=== PATIENT | male | born 1965 | race Caucasian/White ===

== ENCOUNTER → 2016-03-28 | Outpatient (REF) | payer OTHER, BC ==
[~2016-03-28] MED LIST: ACET50TAOT PO; ALKATAB PO; ASPI81TAEC PO; IBUP-1114 PO; NEXI40CA PO; ZYRTTAB2 PO
[2016-03-28 13:20] LABS: BASO % 0.2 % (0.0-1.0); EOS # 0.1 K/mm3 (0.0-0.50); LARGE UNSTAINED CELL # 0.1 K/mm3 (0.0-0.4); LARGE UNSTAINED CELL % 0.8 % (0.0-4.0); LYMPH # 1.5 K/mm3 (1.5-4.5); LYMPH % 11.7 % (24.0-44.0); MEAN CORPUSCULAR HEMOGLOBIN 30.1 pg (27.0-33.0); MEAN CORPUSCULAR HGB CONC 33.9 g/dl (32.0-36.5); MEAN CORPUSCULAR VOLUME 88.8 fl (80.0-96.0); MONO # 0.5 K/mm3 (0.0-0.8); NEUTROPHILS # 9.7 K/mm3 (1.8-7.7); NEUTROPHILS % 82.2 % (36.0-66.0); PLATELET COUNT, AUTOMATED 219 k/mm3 (150-450); RED CELL DISTRIBUTION WIDTH 13.7 % (11.5-14.5); WHITE BLOOD COUNT 11.8 K/mm3 (4.0-10.0)
[2016-03-28 13:42] LABS: FOLATE 10.3 NG/ML; VITAMIN B12 LEVEL 276 PG/ML
[2016-03-28 14:25] LABS: ERYTHROCYTE SEDIMENTATION RATE 7 mm/hr (0-20)
[2016-03-28 20:57] LABS: ALBUMIN 3.6 GM/DL (3.2-5.2); ALBUMIN/GLOBULIN RATIO 1.29 (1.00-1.93); ALKALINE PHOSPHATASE 164 U/L (45-117); ALT/SGPT 11 U/L (12-78); ANION GAP 10 MEQ/L (8-16); AST/SGOT 9 U/L (15-37); BILIRUBIN,TOTAL 0.4 MG/DL (0.2-1.0); BLOOD UREA NITROGEN 20 MG/DL (7-18); CALCIUM LEVEL 9.1 MG/DL (8.5-10.1); CARBON DIOXIDE LEVEL 27 MEQ/L (21-32); CHLORIDE LEVEL 104 MEQ/L (98-107); CREATININE FOR GFR 1.02 MG/DL (0.70-1.30); GLOMERULAR FILTRATION RATE > 60.0 (>56); GLUCOSE, FASTING 80 MG/DL (70-105); POTASSIUM SERUM 4.2 MEQ/L (3.5-5.1); SODIUM LEVEL 141 MEQ/L (136-145); TOTAL PROTEIN 6.4 GM/DL (6.4-8.2)
[2016-03-30 13:45] LABS: ALBUMIN 3.75 GM/DL (3.29-5.55); ALBUMIN % 58.6 % (55.8-66.1); GAMMA GLOBULIN % 10.5 % (11.1-18.8)
[2016-03-30 14:16] LABS: VITAMIN E LEVEL 10.8 mg/L (5.3-17.5)
== END ==
LOC: M LABDRAW1 11:35
PROVIDERS: ATTEND Psychiatry & Neurology Neurology
DX: G62.9 Polyneuropathy, unspecified (principal)

== ENCOUNTER → 2016-05-06 | Outpatient (CLI) | payer BC ==
--- NOTE | 2016-05-06 16:42 | REP ---
MRI BRAIN WITHOUT CONTRAST: 05/06/2016. Clinical history: Altered mental status, cerebrovascular disease. 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 Currently has altered mental status. Please evaluate. Technique: Sagittal T1 with axial T1 and T2 FLAIR, gradient-echo, diffusion weighted images and ADC mapping sequences provided. Findings: Lateral ventricle appearance shows slightly larger right than left, but no significant midline shift. There is somewhat of a hydrocephalus ex vacuo phenomenon on that right side with fairly extensive hyperintense T2 and FLAIR signal in the white matter of the right frontal lobe and anterior parietal temporal lobes. There is hemorrhagic remnant from previous intraparenchymal bleed from the known aneurysm of the right middle cerebral artery peripheral aspect of the M1 segment. The gradient echo images show significant signal residual from prior hemorrhage within that right frontal and anterior parietal temporal region. No midline shift, mass or mass effect. There is some hyperintense white matter T2 and FLAIR signal throughout the frontal horn. There is some asymmetric enlargement of the temporal horn of the right lateral ventricle. The diffusion weighted images and the ADC mapping sequences show no pattern to suggest new or superimposed acute infarct with some susceptibility artifact from the prior surgical and vascular interventional procedures. The craniotomy site over the right anterior fqetsat-prcksvtk-nljcxqho region. The seventh/eighth cranial nerve complexes are intact. Mastoids show minor posterior lateral air cell opacification on the left side only. Brainstem and cerebellum grossly intact. Basal cisterns intact. No extra-axial fluid collection or mass. Orbits and contents unremarkable. The corpus callosum, optic chiasm and suprasellar cistern are unremarkable. There is a partially empty sella. Impression: 1. 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 There are remnants of the hemorrhagic infarct visible on the gradient echo images and no definite evidence of any new or superimposed acute infarct or extension of that previous hemorrhagic infarct. 2. Lateral ventricles slightly dilated and asymmetrically so on the right, corresponding to an ex vacuo phenomenon. No midline shift. Remainder of the brain grossly intact. Posterior fossa intact. No new areas of restricted water diffusion. No new bleeds. Signed by Bert Ledesma MD 05/06/2016 05:12 P
== END ==
LOC: M RAD 13:51
PROVIDERS: ATTEND Psychiatry & Neurology Neurology
DX: R41.82 Altered mental status, unspecified (principal); I67.89 Other cerebrovascular disease; I67.1 Cerebral aneurysm, nonruptured

== ENCOUNTER → 2016-05-24 | Outpatient (REF) | payer BC ==
[2016-05-24 16:40] LABS: FREE T4 1.11 NG/DL (0.76-1.46)
== END ==
LOC: M LABDRAW1 15:31
PROVIDERS: ATTEND Nurse Practitioner Family
DX: R94.7 Abnormal results of other endocrine function studies (principal)

== ENCOUNTER → 2017-01-02 | Outpatient (REF) | payer BC, OTHER ==
[~2017-01-02] MED LIST changes: -ZYRTTAB2 PO; +ZYRTTAB8 PO
[2017-01-02 15:42] LABS: BASO # 0.1 10^3/uL (0.0-0.2); BASO % 0.3 % (0.0-1.0); EOS # 0.2 10^3/uL (0.0-0.50); EOS % 1.1 % (0.0-3.0); IMMATURE GRANULOCYTE % 0.4 % (0-0); LYMPH # 1.9 10^3/uL (1.5-4.5); LYMPH % 11.6 % (24.0-44.0); MEAN CORPUSCULAR HEMOGLOBIN 30.9 pg (27.0-33.0); MEAN CORPUSCULAR HGB CONC 33.6 g/dl (32.0-36.5); MONO # 0.6 10^3/uL (0.0-0.8); MONO % 3.6 % (0.0-5.0); NEUTROPHILS # 13.8 10^3/uL (1.8-7.7); PLATELET COUNT, AUTOMATED 201 10^3/uL (150-450); RED CELL DISTRIBUTION WIDTH 12.8 % (11.5-14.5); WHITE BLOOD COUNT 16.6 10^3/uL (4.0-10.0)
[2017-01-02 15:58] LABS: ALBUMIN 3.8 GM/DL (3.2-5.2); ALBUMIN/GLOBULIN RATIO 1.27 (1.00-1.93); ALKALINE PHOSPHATASE 121 U/L (45-117); ALT/SGPT 17 U/L (12-78); ANION GAP 3 MEQ/L (8-16); AST/SGOT 10 U/L (7-37); BILIRUBIN,TOTAL 0.5 MG/DL (0.2-1.0); BLOOD UREA NITROGEN 19 MG/DL (7-18); CALCIUM LEVEL 9.1 MG/DL (8.5-10.1); CARBON DIOXIDE LEVEL 31 MEQ/L (21-32); CHLORIDE LEVEL 106 MEQ/L (98-107); CREATININE FOR GFR 1.08 MG/DL (0.70-1.30); GLOMERULAR FILTRATION RATE > 60.0 (>56); GLUCOSE, FASTING 110 MG/DL (70-105); POTASSIUM SERUM 3.9 MEQ/L (3.5-5.1); SODIUM LEVEL 140 MEQ/L (136-145); TOTAL PROTEIN 6.8 GM/DL (6.4-8.2)
== END ==
LOC: M LABDRAW1 14:24
PROVIDERS: ATTEND Psychiatry & Neurology Neurology
DX: T88.7XXA Unspecified adverse effect of drug or medicament, initial encounter (principal); Y92.9 Unspecified place or not applicable; Y93.9 Activity, unspecified

== ENCOUNTER 2017-01-14 21:34 | Emergency (ER) | payer BC, OTHER ==
[~2017-01-14] VITALS: Ht 177.8 cm; Wt 75.9 kg
[2017-01-14] MEDS ORDERED: SENN8.6T63 PO (21:50)
[2017-01-14] MEDS ORDERED: FLUO20CA19 PO (21:50)
[2017-01-14] MEDS ORDERED: TOPI25TA10 PO (21:50)
[2017-01-14] MEDS ORDERED: TRAZ50TA11 PO (21:50)
[2017-01-14] MEDS ORDERED: KEPP750T3 PO (21:50)
[2017-01-14] MEDS ORDERED: lidocaine patch TOP (21:50)
[2017-01-14] MEDS ORDERED: ISOVUE-370 76% 100ML VIAL (Q9967) As Ordered ONE (22:32)
--- NOTE | 2017-01-14 23:00 | REPUSA ---
Clinical history: headache. Technique: Multiple axial CT images were obtained through the head after a bolus of nonionic intraven ous contrast. Coronal and sagittal reconstructed images were also obtained. Findings: There is a aneurysm clipped in the right temporal region, causing extensive streak artifact , limiting fine detail on this region. The visualized intracerebral arterial structures including the [place], as well as the carotid and vertebrobasilar arterial systems, demonstrate normal ca liber and contour. There is no evidence of aneurysm, stenosis, or thrombosis. No abnormal enhancing m ass lesions are seen within the brain. The ventricles and sulci are symmetric bilaterally. Right temp oral encephalomalacia is noted. There is no midline shift, mass effect, or extra-axial fluid collecti on. The osseous structures are unremarkable. The visualized paranasal sinuses and mastoid air cells a re clear. Impression: 1. No focal abnormality within the [place]. No evidence of aneurysm. 2. Aneurysm clipped in the right temporal lobe is noted. Encephalomalacia the right temporal lobe is appreciated.
--- NOTE | 2017-01-14 23:10 | REPUSA ---
CT of the head Clinical history: Headache. Comparison: 01/14/2017. Technique: Multiple axial CT images were obtained through the head without administration of contrast . Findings: The ventricles and sulci are grossly unremarkable bilaterally. There is no evidence of acut e hemorrhage or infarct. Aneurysm clipped is noted in the right temporal region. Encephalomalacia in the right frontal and temporal lobes are noted. There is no midline shift, mass effect, or extra-axia l fluid collection. The osseous structures are unremarkable. The visualized paranasal sinuses and mas toid air cells are clear. Impression: No evidence of acute hemorrhage or infarct. Aneurysm repair in the right temporal region is noted with surrounding encephalomalacia the right frontal and right temporal lobes from prior infa rct.
[2017-01-15 01:09] VITALS: BP 108/59
== END 2017-01-15 01:10 | disposition home or self-care (01) ==
LOC: M ED 21:34
DX: R51 Headache (principal); Z86.79 Personal history of other diseases of the circulatory system; F17.200 Nicotine dependence, unspecified, uncomplicated; Z79.899 Other long term (current) drug therapy; Z88.5 Allergy status to narcotic agent; Z88.6 Allergy status to analgesic agent; Z88.8 Allergy status to other drugs, medicaments and biological substances
CPT/HCPCS: 70450; 70496; 99283; Q9967

== ENCOUNTER → 2017-01-30 | Outpatient (REF) | payer BC ==
[~2017-01-30] MED LIST changes: +FLUO20CA19 PO; +KEPP750T3 PO; +SENN8.6T63 PO; +TOPI25TA10 PO; +TRAZ50TA11 PO; +lidocaine patch TOP
[2017-01-30 19:42] LABS: BASO % 0.2 % (0.0-1.0); EOS # 0.2 10^3/uL (0.0-0.50); EOS % 1.4 % (0.0-3.0); IMMATURE GRANULOCYTE % 0.4 % (0-0); LYMPH % 14.4 % (24.0-44.0); MEAN CORPUSCULAR HEMOGLOBIN 31.2 pg (27.0-33.0); MEAN CORPUSCULAR HGB CONC 34.4 g/dl (32.0-36.5); MEAN CORPUSCULAR VOLUME 90.7 fl (80.0-96.0); MONO # 0.5 10^3/uL (0.0-0.8); MONO % 3.7 % (0.0-5.0); NEUTROPHILS # 11.2 10^3/uL (1.8-7.7); NEUTROPHILS % 79.9 % (36.0-66.0); PLATELET COUNT, AUTOMATED 232 10^3/uL (150-450)
[2017-01-30 20:08] LABS: FREE T4 1.08 NG/DL (0.76-1.46)
== END ==
LOC: M LABDRAW1 19:06
PROVIDERS: ATTEND Nurse Practitioner Family
DX: J01.90 Acute sinusitis, unspecified (principal); R94.6 Abnormal results of thyroid function studies

== ENCOUNTER 2017-09-13 02:54 | Emergency (ER) | payer MEDICAID ==
[2017-09-13] MEDS: KETOROLAC 30 MG/ML VIAL (J1885) IV (03:41)
[2017-09-13 04:31] LABS: BASO # 0.1 10^3/uL (0.0-0.2); BASO % 0.2 % (0.0-1.0); EOS # 0.4 10^3/uL (0.0-0.50); EOS % 1.9 % (0.0-3.0); HEMATOCRIT 45.7 % (42.0-52.0); HEMOGLOBIN 15.4 g/dl (13.5-17.5); IMMATURE GRANULOCYTE % 0.4 % (0-3.0); LYMPH # 2.1 10^3/uL (1.5-4.5); LYMPH % 10.3 % (24.0-44.0); MEAN CORPUSCULAR HEMOGLOBIN 31.4 pg (27.0-33.0); MEAN CORPUSCULAR HGB CONC 33.7 g/dl (32.0-36.5); MEAN CORPUSCULAR VOLUME 93.1 fl (80.0-96.0); MONO # 0.9 10^3/uL (0.0-0.8); MONO % 4.4 % (0.0-5.0); NEUTROPHILS # 16.6 10^3/uL (1.8-7.7); NEUTROPHILS % 82.8 % (36.0-66.0); PLATELET COUNT, AUTOMATED 200 10^3/uL (150-450); RED BLOOD COUNT 4.91 10^6/uL (4.30-6.10); RED CELL DISTRIBUTION WIDTH 13.2 % (11.5-14.5); WHITE BLOOD COUNT 20.1 10^3/uL (4.0-10.0)
[2017-09-13 05:18] LABS: AMORPHOUS SEDIMENT RFX SMALL (NEGATIVE); KETONE, URINE AUTO RFX TRACE mg/dL (NEGATIVE); LEUKOCYTE ESTERASE UR AUTO RFX NEGATIVE (NEGATIVE); MUCUS, URINE RFX SMALL (NEGATIVE); NITRITE, URINE AUTO RFX NEGATIVE (NEGATIVE); RBC, URINE AUTO RFX 125 /HPF (0-3); SPECIFIC GRAVITY UR AUTO RFX 1.021 (1.002-1.035); SQUAM EPITHELIAL CELL UR AURFX 0 /HPF (0-6); WBC, URINE AUTO RFX 3 /HPF (0-3)
[2017-09-13 05:38] LABS: ANION GAP 8 MEQ/L (8-16); BLOOD UREA NITROGEN 20 MG/DL (7-18); CALCIUM LEVEL 8.6 MG/DL (8.5-10.1); CARBON DIOXIDE LEVEL 27 MEQ/L (21-32); CHLORIDE LEVEL 109 MEQ/L (98-107); CREATININE FOR GFR 1.16 MG/DL (0.70-1.30); GLOMERULAR FILTRATION RATE > 60.0 (>56); GLUCOSE, FASTING 139 MG/DL (70-100); POTASSIUM SERUM 3.7 MEQ/L (3.5-5.1); SODIUM LEVEL 144 MEQ/L (136-145)
[2017-09-13] MEDS: OXYCODONE/APAP 5MG/325MG(BULK FOR ED) 1 TABLET PO (05:58)
== END 2017-09-13 06:03 | disposition home or self-care (01) ==
LOC: M ED 02:54
DX: N20.1 Calculus of ureter (principal); I10 Essential (primary) hypertension; F33.9 Major depressive disorder, recurrent, unspecified; F17.200 Nicotine dependence, unspecified, uncomplicated; Z98.890 Other specified postprocedural states; Z88.5 Allergy status to narcotic agent; Z88.8 Allergy status to other drugs, medicaments and biological substances; Z79.899 Other long term (current) drug therapy
CPT/HCPCS: J1885

== ENCOUNTER → 2017-11-23 | Outpatient (REF) | payer MEDICAID, MEDICARE ==
[2017-11-28 00:07] LABS: LEVETIRACETAM (KEPPRA) 28.3 ug/mL (10.0-40.0)
== END ==
LOC: M LABDRAW1 11:51
DX: G40.909 Epilepsy, unspecified, not intractable, without status epilepticus (principal)

== ENCOUNTER → 2018-02-15 | Outpatient (REF) | payer MEDICARE, MEDICAID ==
[~2018-02-15] MED LIST changes: +ACET500T15 PO; -ACET50TAOT PO; +FLOM0.4C39 PO; +PERC5TAB12 PO; +TRAZ-160 PO; -TRAZ50TA11 PO; +ZOFR4TAB14 PO
[2018-02-15 16:18] LABS: ALBUMIN 3.7 GM/DL (3.2-5.2); ALT/SGPT 15 U/L (12-78); BILIRUBIN,TOTAL 0.2 MG/DL (0.2-1.0); BLOOD UREA NITROGEN 23 MG/DL (7-18); CALCIUM LEVEL 8.9 MG/DL (8.5-10.1); CARBON DIOXIDE LEVEL 28 MEQ/L (21-32); CHLORIDE LEVEL 107 MEQ/L (98-107); FREE T3 2.6 PG/ML (2.2-4.0); GLOMERULAR FILTRATION RATE > 60.0 (>56); GLUCOSE, FASTING 98 MG/DL (70-100); POTASSIUM SERUM 3.8 MEQ/L (3.5-5.1); SODIUM LEVEL 142 MEQ/L (136-145); THYROID STIMULATING HORMONE 0.544 uIU/ML (0.358-3.740); TOTAL PROTEIN 6.7 GM/DL (6.4-8.2)
== END ==
LOC: M LABDRAW1 14:29
PROVIDERS: ATTEND Nurse Practitioner Family
DX: R94.6 Abnormal results of thyroid function studies (principal); I72.8 Aneurysm of other specified arteries

== ENCOUNTER → 2018-07-17 | Outpatient (CLI) | payer MEDICARE, MEDICAID ==
--- NOTE | 2018-07-17 10:03 | REP ---
CT LUMBAR SPINE WITHOUT CONTRAST: HISTORY: Back pain. COMPARISON: MR 01/27/2015 A diffuse disc bulge and small central disc extrusion are present at the L1-2 level. There is mild compression of the thecal sac. The L1 nerves exit the neural foramina without compression. A diffuse disc bulge is present at the L2-3 level. There is minimal compression of the thecal sac. The L2 nerves exit the neural foramina without compression. A diffuse disc bulge is present at the L3-4 level. There is mild compression of the thecal sac. There is hypertrophy of the posterior articulating facets. The L3 nerves exit the neural foramina without compression. A diffuse disc bulge is present at the L4-5 level. There is minimal compression of the thecal sac. There is hypertrophy of the posterior articulating facets. The L4 nerves exit the neural foramina without compression. A left laminectomy defect is present. A diffuse disc bulge is present at the L5-S1 level. There is minimal compression of the thecal sac. There is hypertrophy of the posterior articulating facets. There is compression of the L5 nerves in the neural foramina. A left laminectomy defect is present. The L4-5 and L5-S1 intervertebral discs are decreased in height. A vacuum phenomenon is present at the L5-S1 level. These findings are consistent with disc degeneration. There is no subluxation. IMPRESSION:1. Diffuse disc bulge and small central disc extrusion at the L1-2 level with mild thecal sac compression. 2. Diffuse disc bulges at the L2-3 and L4-5 level with minimal sac compression. A left laminectomy is present at the L4-5 level. 3. Diffuse disc bulge at the L3-4 level with mild thecal sac compression. 4. Diffuse disc bulge at the L5-S1 level with minimal thecal sac compression. There is compression of the L5 nerves in the neural foramina. A left laminectomy defect is present. The L5 nerve compression is a new finding. Electronically Signed by Artemio Cervantes MD 07/17/2018 10:22 A
== END ==
LOC: M RAD 08:22
PROVIDERS: ATTEND Physician Assistant Medical
DX: M54.5 Low back pain (principal); M47.896 Other spondylosis, lumbar region; N39.3 Stress incontinence (female) (male)

== ENCOUNTER → 2018-11-13 | Outpatient (REF) | payer MEDICARE, MEDICAID ==
[~2018-11-13] MED LIST changes: -TRAZ-160 PO; +TRAZ-252 PO
[2018-11-13 13:15] LABS: CHOLESTEROL RISK RATIO 4.95 (<5)
[2018-11-13 13:33] LABS: HEMOGLOBIN A1c 5.2 %
== END ==
LOC: M LABDRWAD 12:15
PROVIDERS: ATTEND Family Medicine
DX: Z13.1 Encounter for screening for diabetes mellitus (principal); Z13.220 Encounter for screening for lipoid disorders; K76.89 Other specified diseases of liver

== ENCOUNTER → 2019-01-04 | Outpatient (CLI) | payer MEDICARE, MEDICAID ==
[~2019-01-04] MED LIST changes: +ISOVUE-370 76% 100ML VIAL (Q9967) As Ordered ONE
--- NOTE | 2019-01-04 13:39 | REP ---
Intracranial CTA: 01/04/2019. Indication: Intracranial aneurysm. Comparison: 01/14/2017. Technique: High resolution axial CT images of the intracranial vessels were obtained following IV contrast. 75 ml of IV Isovue 370 were administered. Findings: Evaluation of the click ablated aneurysm is suboptimal secondary to extensive streak artifact. Postoperative sequelae on the right are present status post pterional craniotomy and clip ablation of an MCA bifurcation aneurysm. Surrounding encephalomalacia and gliosis of the frontotemporal region is present. There is no mass effect detected. There is ex vacuo dilatation of the right lateral ventricle. No intracranial aneurysm is detected. There is no evidence of high-grade intracranial vascular stenosis or occlusion. No intracranial AVM is detected. Impression: Suboptimal evaluation of the clip ablated right MCA aneurysm. No definite residual/recurrent aneurysm detected. No new intracranial aneurysms. No intracranial vascular high-grade stenosis or vessel occlusion. Electronically Signed by Agustin Epstein DO 01/04/2019 01:30 P
== END ==
LOC: M RAD 11:53
PROVIDERS: ATTEND Physician Assistant
DX: M54.5 Low back pain (principal); M79.605 Pain in left leg; I60.8 Other nontraumatic subarachnoid hemorrhage; I61.2 Nontraumatic intracerebral hemorrhage in hemisphere, unspecified
CPT/HCPCS: 70496; Q9967

== ENCOUNTER → 2019-03-15 | Outpatient (REF) | payer MEDICARE, MEDICAID ==
[~2019-03-15] MED LIST changes: -ISOVUE-370 76% 100ML VIAL (Q9967) As Ordered ONE
== END ==
LOC: M LABDRAW1 11:29
PROVIDERS: ATTEND Physician Assistant Medical
DX: R56.9 Unspecified convulsions (principal)
CPT/HCPCS: 36415; 80180; 85025; G0103

== ENCOUNTER → 2019-03-15 | Outpatient (REF) | payer MEDICARE, MEDICAID ==
[2019-03-15 16:00] LABS: BASO % 0.3 % (0.0-1.0); EOS # 0.2 10^3/uL (0.0-0.5); EOS % 1.4 % (0.0-3.0); HEMATOCRIT 47.8 % (42.0-52.0); HEMOGLOBIN 16.3 g/dl (13.5-17.5); LYMPH # 2.1 10^3/uL (1.5-5.0); LYMPH % 14.3 % (24.0-44.0); MEAN CORPUSCULAR HEMOGLOBIN 31.3 pg (27.0-33.0); MEAN CORPUSCULAR HGB CONC 34.1 g/dl (32.0-36.5); MEAN CORPUSCULAR VOLUME 91.9 fl (80.0-96.0); MONO # 0.7 10^3/uL (0.0-0.8); MONO % 4.5 % (0.0-5.0); NEUTROPHILS # 11.9 10^3/uL (1.5-8.5); NEUTROPHILS % 79.2 % (36.0-66.0); PLATELET COUNT, AUTOMATED 203 10^3/uL (150-450)
== END ==
LOC: M LABDRAW1 11:31
PROVIDERS: ATTEND Family Medicine
DX: D72.829 Elevated white blood cell count, unspecified (principal); R39.9 Unspecified symptoms and signs involving the genitourinary system
CPT/HCPCS: 85025; G0103

== ENCOUNTER → 2019-04-16 | Outpatient (REF) | payer MEDICARE, MEDICAID ==
[~2019-04-16] MED LIST changes: -FLUO20CA19 PO; +FLUO20CA22 PO
== END ==
LOC: M SFHCLERA 15:08
PROVIDERS: ATTEND Family Medicine
DX: D72.829 Elevated white blood cell count, unspecified (principal); M35.00 Sjogren syndrome, unspecified; F43.8 Other reactions to severe stress; F06.32 Mood disorder due to known physiological condition with major depressive-like episode; Z56.9 Unspecified problems related to employment
CPT/HCPCS: 90834; G0463

== ENCOUNTER → 2019-04-25 | Outpatient (REF) | payer MEDICARE, MEDICAID ==
[2019-04-25 15:48] LABS: BASO % 0.3 % (0.0-1.0); EOS # 0.4 10^3/uL (0.0-0.5); EOS % 3.3 % (0.0-3.0); HEMOGLOBIN 15.9 g/dl (13.5-17.5); LYMPH # 2.3 10^3/uL (1.5-5.0); LYMPH % 18.6 % (24.0-44.0); MEAN CORPUSCULAR HEMOGLOBIN 30.6 pg (27.0-33.0); MEAN CORPUSCULAR HGB CONC 33.1 g/dl (32.0-36.5); MEAN CORPUSCULAR VOLUME 92.3 fl (80.0-96.0); MONO # 0.6 10^3/uL (0.0-0.8); MONO % 5.1 % (0.0-5.0); NEUTROPHILS # 9.1 10^3/uL (1.5-8.5); NEUTROPHILS % 72.3 % (36.0-66.0); PLATELET COUNT, AUTOMATED 202 10^3/uL (150-450); WHITE BLOOD COUNT 12.6 10^3/uL (4.0-10.0)
[2019-04-25 15:49] LABS: ALBUMIN 3.6 GM/DL (3.2-5.2); ALT/SGPT 15 U/L (12-78); BILIRUBIN,TOTAL 0.4 MG/DL (0.2-1.0); BLOOD UREA NITROGEN 23 MG/DL (7-18); C REACTIVE PROTEIN QUANTITATIV 1.35 MG/DL (0.00-0.30); CALCIUM LEVEL 9.1 MG/DL (8.5-10.1); CARBON DIOXIDE LEVEL 31 MEQ/L (21-32); CHLORIDE LEVEL 107 MEQ/L (98-107); GLOMERULAR FILTRATION RATE > 60.0 (>56); GLUCOSE, FASTING 89 MG/DL (70-100); LDH LACTATE DEHYDROGENASE 148 U/L (87-241); POTASSIUM SERUM 4.1 MEQ/L (3.5-5.1); SODIUM LEVEL 140 MEQ/L (136-145); TOTAL PROTEIN 6.8 GM/DL (6.4-8.2)
[2019-04-25 16:21] LABS: ERYTHROCYTE SEDIMENTATION RATE 13 mm/hr (0-20)
[2019-04-28 00:06] LABS: ANA (HEP2) Negative (.); CARDIOLIPIN IGA ANTIBODY <9 APL U/mL (0-11); CARDIOLIPIN IGG ANTIBODY <9 GPL U/mL (0-14); CARDIOLIPIN IGM ANTIBODY <9 MPL U/mL (0-12); SSA SJOGRENS A <0.2 AI (0.0-0.9); SSB SJOGRENS B <0.2 AI (0.0-0.9)
== END ==
LOC: M SFHCLERA 13:18 → M SFHCADAM 13:20
PROVIDERS: ATTEND Family Medicine
DX: D72.829 Elevated white blood cell count, unspecified (principal); M35.00 Sjogren syndrome, unspecified

== ENCOUNTER → 2019-06-05 | Outpatient (CLI) | payer MEDICARE, MEDICAID ==
--- NOTE | 2019-06-05 17:10 | REP ---
HISTORY: History of renal calculi. COMPARISON: There are no priors for comparison. Seen superimposed over the inferior pole region of the right nephric silhouette, there is an 8 mm sized calcification. There is significant bowel content obscuring both nephric silhouettes. There are no abnormal pelvic calcifications or other calcifications identified. The intestinal gas pattern is nonspecific. The organ silhouettes in so far as delineated are within normal limits. The imaged osseous structures are within normal limits for the patient's age. IMPRESSION: Findings and limitations as described above. Electronically Signed by Zheng Mariee DO 06/06/2019 08:56 A
== END ==
LOC: M ADAMS 16:16
PROVIDERS: ATTEND Urology
DX: Z87.442 Personal history of urinary calculi (principal)

== ENCOUNTER → 2019-06-11 | Outpatient (CLI) | payer MEDICARE, MEDICAID ==
--- NOTE | 2019-06-11 09:55 | REP ---
REASON FOR EXAM: Renal calculi. COMPARISON: 09/13/2017 There are chronic lung base changes status quo. Limited evaluation of the solid intra-abdominal organs and gallbladder show no significant changes from the prior exam. There is a cyst in the medial segment of the left lobe of the liver status quo. Limited evaluation of the pancreas and adrenal glands show no gross abnormalities or significant changes from the prior exam. Limited evaluation of the kidneys show no significant changes from the prior exam. There is a tiny calcification in the inferior pole of the right kidney status quo and the calcification seen previously in the inferior pole of the left kidney, although slightly larger, causes no obstructive phenomena. Limited evaluation of the abdominal aorta and para-aortic regions show no changes from the prior exam. The bowel loops and their mesenteries are essentially unchanged. There is no free fluid or free air. There is no mass or adenopathy. CT PELVIS: There is no mass or adenopathy. There is no free fluid or free air. There is no significant change from the prior exam. Bone window technique through the examination shows no significant change. IMPRESSION: No significant change from the prior exam. Findings as described above. Electronically Signed by Zheng Mariee DO 06/11/2019 10:02 A
== END ==
LOC: M RAD 09:02
PROVIDERS: ATTEND Nurse Practitioner Family
DX: N20.0 Calculus of kidney (principal); K76.89 Other specified diseases of liver

== ENCOUNTER → 2019-12-25 | Outpatient (CLI) | payer MEDICARE, MEDICAID ==
[~2019-12-25] MED LIST changes: +ISOVUE-370 76% 100ML VIAL As Ordered ONE
--- NOTE | 2019-12-25 15:51 | REP ---
INDICATION: ANEURYSM FILE ROOM. Right middle cerebral artery aneurysm. Nontraumatic hemorrhage right cerebral hemisphere. COMPARISON: Comparison CT angiography January 04, 2019 and January 14, 2017.. TECHNIQUE: CT contrast dose: 75 ml of intravenous Isovue 370. CT technique: Helical scanning is acquired. 2 mm axial images are reformatted. Maximal intensity projection and multiplanar re-formation images are generated along with 3-D surface rendered color imaging which is viewed rotational. FINDINGS: There is considerable spray artifact from the metallic aneurysm clip at the level of the bifurcation of the right middle cerebral artery in the right temporal lobe. Patient is status post right temporal craniotomy. The bifurcation of the right middle cerebral artery is obscured by the spray artifact. The anterior and middle cerebral arteries are otherwise unremarkable. The distal vertebral arteries are intact. Basilar artery is slightly tortuous. Posterior cerebral and superior cerebellar vessels are symmetric. No other fajardo aneurysm is appreciated. There is no evidence of arteriovenous malformation. There are some stable encephalomalacia changes noted in the right temporal and frontal lobes with a enlargement of the right lateral ventricle unchanged from the prior study. No abnormality is noted in the dural sinuses. 3D surface rendered imaging shows no additional abnormality. IMPRESSION: Status post middle cerebral artery aneurysm clipping. [place] artifact from the metallic clip. Otherwise negative. No other fajardo aneurysm seen. <Electronically signed by Isidro Jefferson > 12/25/19 [id number]
== END ==
LOC: M RAD 12:41
PROVIDERS: ATTEND Physician Assistant
DX: I72.0 Aneurysm of carotid artery (principal)
CPT/HCPCS: 70496; Q9967

== ENCOUNTER → 2020-01-01 | Outpatient (REF) | payer MEDICARE, MEDICAID ==
[~2020-01-01] MED LIST changes: -ISOVUE-370 76% 100ML VIAL As Ordered ONE
[2020-01-01 12:50] LABS: BASO % 0.2 % (0.0-1.0); EOS # 0.4 10^3/uL (0.0-0.5); HEMATOCRIT 49.5 % (42.0-52.0); HEMOGLOBIN 16.4 g/dl (13.5-17.5); LYMPH # 2.3 10^3/uL (1.5-5.0); LYMPH % 18.2 % (24.0-44.0); MEAN CORPUSCULAR HGB CONC 33.1 g/dl (32.0-36.5); MEAN CORPUSCULAR VOLUME 93.6 fl (80.0-96.0); MONO # 0.7 10^3/uL (0.0-0.8); MONO % 5.3 % (0.0-5.0); NEUTROPHILS # 9.1 10^3/uL (1.5-8.5); PLATELET COUNT, AUTOMATED 206 10^3/uL (150-450); RED BLOOD COUNT 5.29 10^6/uL (4.30-6.10); WHITE BLOOD COUNT 12.5 10^3/uL (4.0-10.0)
[2020-01-01 13:27] LABS: ALBUMIN 3.9 GM/DL (3.2-5.2); ALT/SGPT 13 U/L (12-78); BILIRUBIN,TOTAL 0.3 MG/DL (0.2-1.0); BLOOD UREA NITROGEN 22 MG/DL (7-18); CALCIUM LEVEL 9.6 MG/DL (8.5-10.1); CARBON DIOXIDE LEVEL 26 MEQ/L (21-32); CHLORIDE LEVEL 107 MEQ/L (98-107); CHOLESTEROL LEVEL 161 MG/DL (<200); CHOLESTEROL RISK RATIO 3.577 (<5); CREATININE FOR GFR 1.17 MG/DL (0.70-1.30); GLOMERULAR FILTRATION RATE > 60.0 (>56); GLUCOSE, FASTING 104 MG/DL (70-100); HDL CHOLESTEROL 45 MG/DL (>40); LDL CHOLESTEROL 96 MG/DL (<100); NON-HDL-C 116 MG/DL; POTASSIUM SERUM 4.4 MEQ/L (3.5-5.1); SODIUM LEVEL 139 MEQ/L (136-145); THYROID STIMULATING HORMONE 0.644 uIU/ML (0.358-3.740); TOTAL PROTEIN 6.8 GM/DL (6.4-8.2); TRIGLYCERIDES LEVEL 98 MG/DL (<150)
== END ==
LOC: M SFHCLERA 10:46 → M SFHCADAM 11:02
PROVIDERS: ATTEND Family Medicine
DX: Z87.898 Personal history of other specified conditions (principal); Z13.220 Encounter for screening for lipoid disorders

== ENCOUNTER → 2020-01-01 | Outpatient (REF) | payer MEDICARE, MEDICAID ==
[2020-01-04 07:07] LABS: LEVETIRACETAM (KEPPRA) 31.1 ug/mL (10.0-40.0); TOPIRAMATE LEVEL 3.4 ug/mL (2.0-25.0)
== END ==
LOC: M LABDRWAD 12:36
PROVIDERS: ATTEND Physician Assistant Medical
DX: R56.9 Unspecified convulsions (principal); Z51.81 Encounter for therapeutic drug level monitoring

== ENCOUNTER → 2020-01-01 | Outpatient (CLI) | payer MEDICARE, MEDICAID ==
--- NOTE | 2020-01-01 10:47 | REP ---
INDICATION: LIVER LESION. COMPARISON: CT abdomen 06/11/2019 TECHNIQUE: Standard right upper quadrant ultrasound performed FINDINGS: Sonographic evaluation of the liver shows generally homogeneous echotexture without enlargement the midclavicular line with vertical diameter 14.6 cm is a normal size. Right lobe shows a 2 mm echogenic focus consistent with a small calcifications seen on CT 06/11/2019. There is a 5.3 x 4.4 x 3.3 cm cystic lesion just medial to the ede hepatis. Has some complex features and septations but with very good through transmission. Gallbladder is without stone, sludge, wall thickening or pericholecystic fluid. No sonographic Scruggs's sign identified. The common duct is 4.4 mm without a stone. Pancreas is completely obscured due to gas shadowing. Right kidney is 11.1 x 4.6 x 5.8 cm and has some sinus lipomatosis. No discrete abnormality kidneys 1. IMPRESSION: 1. Complex cyst with loculations and septa inside within the right hepatic lobe near the ede hepatis. It is 5.3 x 4.4 x 3.3 cm. Two years ago it was 4.3 cm in greatest diameter. There are no other significant findings in the right upper quadrant. <Electronically signed by Bert Ledesma > 01/01/20 [id number]
== END ==
LOC: M RAD 09:22
PROVIDERS: ATTEND Family Medicine
DX: K76.9 Liver disease, unspecified (principal); R56.9 Unspecified convulsions; Z51.81 Encounter for therapeutic drug level monitoring; Z87.898 Personal history of other specified conditions; Z13.220 Encounter for screening for lipoid disorders; Z79.899 Other long term (current) drug therapy

== ENCOUNTER → 2020-03-09 | Outpatient (REF) | payer MEDICARE, MEDICAID | LOC: M SFHCADAM 16:02 | PROVIDERS: ATTEND Nurse Practitioner Women's Health | DX: Z12.5 Encounter for screening for malignant neoplasm of prostate (principal) ==

== ENCOUNTER → 2020-04-07 | Outpatient (CLI) | payer MEDICARE, MEDICAID ==
--- NOTE | 2020-04-07 19:45 | REP ---
INDICATION: PARACARDIAL CYST. COMPARISON: Comparison is made with imaging from CT abdomen pelvis dated [address] abdomen pelvis September 13, 2017.. TECHNIQUE: Helical scanning is acquired. 3 mm axial images are generated. Coronal and sagittal MPR and coronal MIP images are generated. 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 Axial CT images confirm the presence of a 3.5 cm homogeneous water density cyst in the epicardial fat to the right of midline just above the diaphragm anteriorly. This is essentially unchanged from both prior studies. It is previous greatest dimension was 3.8 cm. No soft tissue component is seen. There are granulomatous reynold calcifications in the subcarinal and right hilar region consistent with granulomatous changes. No mediastinal mass or adenopathy is seen. There is minimal vascular calcification. There are scattered interstitial fibrosis changes in the lung bases bilaterally. Moderate emphysematous changes are noted in the upper lobes bilaterally. No acute infiltrate is seen. No pleural effusion or pericardial effusion is seen. No pulmonary mass or significant pulmonary nodule is appreciated. No endobronchial disease is seen. Previously noted left lobe hepatic cyst is again seen measuring 4.7 cm in greatest diameter. In 2018, this cyst measured 4.1 cm. Normal adrenal glands are seen. The visualized upper abdominal structures are otherwise unremarkable. IMPRESSION: Stable simple cystic lesion in the epicardial fat consistent with pericardial cyst. Interstitial fibrosis in the lower lobes and emphysematous changes in the upper lobes of the lungs consistent with COPD. Old granulomatous calcifications. Benign simple cyst in the liver. <Electronically signed by Isidro Jefferson > 04/07/201940
== END ==
LOC: M RAD 16:15
PROVIDERS: ATTEND Family Medicine
DX: Q24.8 Other specified congenital malformations of heart (principal); J84.10 Pulmonary fibrosis, unspecified; J43.9 Emphysema, unspecified; K76.89 Other specified diseases of liver

== ENCOUNTER 2020-05-20 14:09 | Emergency (ER) | payer MEDICARE, MEDICAID ==
[~2020-05-20] VITALS: Ht 177.8 cm; Wt 78.6 kg
[~2020-05-20 14:09] MED LIST changes: +ASPI-569 PO; -ASPI81TAEC PO
[2020-05-20] MEDS ORDERED: ACET-683 PO (14:26)
[2020-05-20] MEDS ORDERED: VITMTA PO (14:26)
[2020-05-20] MEDS ORDERED: OXYB15TA14 (14:26)
[2020-05-20] MEDS ORDERED: PRAV10TA3 (14:26)
[2020-05-20] MEDS ORDERED: ONDANSETRON 4MG/2ML VIAL IV ONE (16:15)
[2020-05-20] MEDS ORDERED: PANTOPRAZOLE 40MG VIAL (C9113 PER 1) IV ONE (16:15)
[2020-05-20] MEDS ORDERED: KETOROLAC 30 MG/ML 1ML VIAL IV ONE (16:15)
[2020-05-20] MEDS ORDERED: NS 1,000 ML IV ONE (16:15)
--- NOTE | 2020-05-20 17:16 | REP ---
INDICATION: llq pain calc vs divertic. COMPARISON: 06/11/2019 TECHNIQUE: Noncontrast imaging through the abdomen and pelvis with coronal and sagittal reconstructions. FINDINGS: CT abdomen: The lung base shows some minor dependent atelectasis deep sulcus and peripheral subpleural fibrotic changes bilaterally. No effusion or acute infiltrate. No pulmonary nodules. Heart is not grossly enlarged no pericardial thickening or effusion and no hiatal hernia. Liver, spleen and gallbladder are without acute finding Paddock cyst adjacent to the gallbladder fossa medial to it and minimally changed from the previous study now 4.7 cm, previously 4.3 cm. No calcified gallstones, biliary dilatation or ascites in the upper abdomen. There is 1 calcification in the spleen from old granulomatous disease. Adrenal glands are normal. Pancreas without any acute finding. Small bowel loops without abnormal dilatation or perienteric inflammatory changes. The aorta has calcifications without aneurysm no periaortic, mesenteric or retroperitoneal pathologic sized lymphadenopathy stool and liquid in the colon without signs of colitis or diverticulitis. There are few pericecal small nodes but no of phlegm a suresh changes or definite visualization of the appendix. Lung window review of all CT slices abdomen and pelvis shows no evidence of perforation or free air. Kidneys show scarring anteriorly lower pole on the right with a calcification in subcapsular lower pole on the right,unchanged. This is about 6 mm. No hydronephrosis, other right renal stones or dilatation of the ureter. No right ureteral stone. The left kidney shows 2 adjacent stones in the lower pole collecting system which combined have a diameter of approximately 8 x 7 mm. No other left renal stones. Left ureter follows normal course to the bladder and at the UVJ there is a 3.8 mm stone which contributes to minimal hydroureter and hydronephrosis. Bone windows show degenerative disc changes at L4-5, L5-S1 and no compression deformity or destructive lesion lumbar lower and thoracic spine. Visualized ribs are intact. CT pelvis: The bony pelvis shows sacrum, SI joints, iliac bones, acetabula, ischia and hips without fracture or acute finding. There is sacralization of transverse processes of L5 as anatomic normal variation and these are fused with the S1 sacral segment. There is no pelvic mass. Bladder is well filled. No stone within the bladder. There is a 3.8 mm stone at the left UVJ as described above. No right ureteral dilatation or stone. No pelvic lymphadenopathy or free fluid. Distal left colon, sigmoid and rectum unremarkable. Small bowel loops in the pelvis unremarkable. No ventral or inguinal hernia nor pathologic sized inguinal adenopathy. IMPRESSION: 1. There is a 3.8 mm stone at the left UVJ contributing to minimal left ureteral and collecting system dilatation. The lower pole of the left kidney has 2 adjacent stones 8 x 7 mm combined measurement which are not contributing to this obstruction which is mild. 2. A non occluding 6.5 mm subcapsular stone lower pole right kidney anterior adjacent to a cortical scar in that same kidney stable no right hydronephrosis hydroureter or stones in the collecting system/ureter. 3. Atherosclerotic calcifications aorta without aneurysm. One calcification in the spleen from old granulomatous disease. No other significant or acute finding. <Electronically signed by Bert Ledesma > 05/20/20 [id number]
[2020-05-20 17:22] LABS: BASO % 0.1 % (0.0-1.0); EOS # 0.2 10^3/uL (0.0-0.5); HEMATOCRIT 47.3 % (42.0-52.0); HEMOGLOBIN 15.8 g/dl (13.5-17.5); LYMPH # 1.8 10^3/uL (1.5-5.0); LYMPH % 11.9 % (24.0-44.0); MEAN CORPUSCULAR HEMOGLOBIN 31.2 pg (27.0-33.0); MEAN CORPUSCULAR HGB CONC 33.4 g/dl (32.0-36.5); MEAN CORPUSCULAR VOLUME 93.3 fl (80.0-96.0); MONO % 6.5 % (2.0-8.0); NEUTROPHILS # 12.4 10^3/uL (1.5-8.5); NEUTROPHILS % 80.2 % (36.0-66.0); PLATELET COUNT, AUTOMATED 196 10^3/uL (150-450); RED BLOOD COUNT 5.07 10^6/uL (4.30-6.10); WHITE BLOOD COUNT 15.5 10^3/uL (4.0-10.0)
[2020-05-20 17:27] LABS: INR 0.97; PROTHROMBIN TIME 13.1 SECONDS (12.5-14.3)
[2020-05-20 17:50] LABS: ALBUMIN 3.6 GM/DL (3.2-5.2); BILIRUBIN,DIRECT 0.2 MG/DL (0.0-0.2); BILIRUBIN,TOTAL 0.5 MG/DL (0.2-1.0); CALCIUM LEVEL 9.7 MG/DL (8.5-10.1); CREATININE FOR GFR 1.53 MG/DL (0.70-1.30); GLOMERULAR FILTRATION RATE 50.6 (>56); POTASSIUM SERUM 3.9 MEQ/L (3.5-5.1); TOTAL PROTEIN 6.8 GM/DL (6.4-8.2)
[2020-05-20] MEDS ORDERED: CIPROFLOXACIN 400 MG in IV 1 EA IV ONE (17:55)
[2020-05-20] MEDS ORDERED: TAMSULOSIN 0.4 MG CAP PO ONE (17:55)
[2020-05-20] MEDS ORDERED: ZOFR4TAB16 PO (19:07)
[2020-05-20] MEDS ORDERED: KETO10TAB PO (19:07)
[2020-05-20] MEDS ORDERED: FLOM0.4C39 PO (19:07)
[2020-05-20] MEDS ORDERED: CIPR-249 PO (19:07)
[2020-05-20 19:52] VITALS: BP 118/68
== END 2020-05-20 19:56 | disposition home or self-care (01) ==
LOC: M ED 14:09
DX: N39.0 Urinary tract infection, site not specified (principal); N13.2 Hydronephrosis with renal and ureteral calculous obstruction; R11.0 Nausea; R19.7 Diarrhea, unspecified; I67.1 Cerebral aneurysm, nonruptured; I70.90 Unspecified atherosclerosis; D73.89 Other diseases of spleen; K76.89 Other specified diseases of liver; I11.9 Hypertensive heart disease without heart failure; E78.5 Hyperlipidemia, unspecified; J45.909 Unspecified asthma, uncomplicated; F17.200 Nicotine dependence, unspecified, uncomplicated; Z88.5 Allergy status to narcotic agent; Z88.6 Allergy status to analgesic agent; Z88.8 Allergy status to other drugs, medicaments and biological substances; Z79.899 Other long term (current) drug therapy
CPT/HCPCS: 74176; 80048; 80076; 81001; 83690; 85025; 85610; 87086; 96361; 96365; 96375; 99284; C9113; J0744; J1885; J2405

== ENCOUNTER → 2020-07-02 | Outpatient (CLI) | payer MEDICARE, MEDICAID ==
[~2020-07-02] MED LIST changes: +ACET-683 PO; +CIPR-249 PO; +KETO10TAB PO; +OXYB15TA14 PO; +PRAV10TA3 PO; +SENN-80 PO; +VITMTA PO; +ZOFR4TAB16 PO
== END ==
LOC: M LAB 15:50
PROVIDERS: ATTEND Physician Assistant Medical
DX: G40.89 Other seizures (principal)

== ENCOUNTER → 2020-07-02 | Outpatient (CLI) | payer MEDICARE, MEDICAID ==
--- NOTE | 2020-07-03 20:35 | ECGEPIP ---
[facility] Test Date: 2020-07-02 Pat Name: VINCE GUZMAN Department: Room: - Gender: Male Firearms Specialist: eloy : 1965 Requested By: SUSHIL Anthony Order Number: [id number] Reading MD: Mike Ballesteros Measurements Intervals [place] Rate: 65 P: 55 TX: 180 QRS: 55 QRSD: 88 T: 71 QT: 412 QTc: 428 Interpretive Statements Normal sinus rhythm No RV conduction delay compared with 04/10/2015. Electronically Signed on 07-03-2020 20:34:57 EDT by Mike Ballesteros
== END ==
LOC: M EKG 15:52
PROVIDERS: ATTEND Anesthesiology
DX: Z01.818 Encounter for other preprocedural examination (principal)

== ENCOUNTER → 2020-07-02 | Outpatient (CLI) | payer MEDICARE, MEDICAID ==
[2020-07-02 17:16] LABS: BLOOD UREA NITROGEN 21 MG/DL (7-18); CALCIUM LEVEL 9.3 MG/DL (8.5-10.1); CARBON DIOXIDE LEVEL 28 MEQ/L (21-32); CHLORIDE LEVEL 105 MEQ/L (98-107); CREATININE FOR GFR 1.14 MG/DL (0.70-1.30); GLOMERULAR FILTRATION RATE > 60.0 (>56); GLUCOSE, FASTING 85 MG/DL (70-100); POTASSIUM SERUM 3.9 MEQ/L (3.5-5.1); SODIUM LEVEL 138 MEQ/L (136-145)
[2020-07-02 17:24] LABS: HEMATOCRIT 45.4 % (42.0-52.0); MEAN CORPUSCULAR HEMOGLOBIN 30.5 pg (27.0-33.0); MEAN CORPUSCULAR VOLUME 92.3 fl (80.0-96.0); PLATELET COUNT, AUTOMATED 215 10^3/uL (150-450); RED BLOOD COUNT 4.92 10^6/uL (4.30-6.10); WHITE BLOOD COUNT 12.1 10^3/uL (4.0-10.0)
[2020-07-02 17:27] LABS: INR 1.13; PROTHROMBIN TIME 14.8 SECONDS (12.5-14.3)
[2020-07-02 17:28] LABS: PARTIAL THROMBOPLASTIN TIME 35.7 SECONDS (24.2-38.5)
[2020-07-02 17:38] LABS: APPEARANCE, URINE HAZY (CLEAR); BACTERIA, URINE AUTO NEGATIVE (NEGATIVE); BILIRUBIN, URINE AUTO NEGATIVE (NEGATIVE); BLOOD, URINE BLOOD NEGATIVE (NEGATIVE); CALCIUM OXALATE CRYSTALS SMALL; COLOR, URINE YELLOW (YELLOW); GLUCOSE, URINE (UA) AUTO NEGATIVE (NEGATIVE); KETONE, URINE AUTO NEGATIVE (NEGATIVE); LEUKOCYTE ESTERASE, URINE AUTO NEGATIVE (NEGATIVE); MUCUS, URINE SMALL (NEGATIVE); NITRITE, URINE AUTO NEGATIVE (NEGATIVE); PROTEIN, URINE AUTO NEGATIVE (NEGATIVE); RBC, URINE AUTO 4 /HPF (0-3); SQUAMOUS EPITHELIAL CELL UR AU 0 /HPF (0-6); WBC, URINE AUTO 6 /HPF (0-3)
== END ==
LOC: M LAB 15:47
PROVIDERS: ATTEND Nurse Practitioner Women's Health
DX: Z01.818 Encounter for other preprocedural examination (principal); N20.0 Calculus of kidney; R79.1 Abnormal coagulation profile

== ENCOUNTER → 2020-07-04 | Outpatient (CLI) | payer MEDICARE, MEDICAID | LOC: M LABSMTC 08:02 | PROVIDERS: ATTEND Anesthesiology | DX: Z20.828 Contact with and (suspected) exposure to other viral communicable diseases (principal); Z11.59 Encounter for screening for other viral diseases ==

== ENCOUNTER 2020-07-09 06:24 | Day surgery (SDC) | payer MEDICARE, MEDICAID ==
[~2020-07-09] VITALS: Ht 177.8 cm; Wt 77.1 kg
[~2020-07-09 06:24] MED LIST changes: +LR 1,000 ML IV ONE; +ceFAZolin SOD 2 GM in IV 1 EA IV ONE
[2020-07-09] MEDS ORDERED: OXYC1TAB23 PO (07:49)
[2020-07-09] MEDS ORDERED: PHENYLephrine 500MCG 5ML (100MCG/ML) SYRINGE As Ordered ONE (07:51)
[2020-07-09] MEDS ORDERED: METOCLOPRAMIDE INJ 10MG/2ML VIAL (J2765 PER 1) As Ordered ONE (07:51)
[2020-07-09] MEDS ORDERED: REMIFENTANIL 1MG 3ML VIAL As Ordered ONE (07:51)
[2020-07-09] MEDS ORDERED: dexameTHASONE 4 MG/ML 1ML VIAL (J1100 PER 1MG) As Ordered ONE (07:51)
[2020-07-09] MEDS ORDERED: propofoL 200 MG/20 ML VIAL As Ordered ONE (07:51)
[2020-07-09] MEDS ORDERED: fentaNYL 100 MCG/2 ML INJECTION (J3010) As Ordered ONE (07:51)
[2020-07-09] MEDS ORDERED: MIDAZOLAM INJ 2MG/2ML VIAL (J2250 PER 1MG) As Ordered ONE (07:51)
[2020-07-09] MEDS ORDERED: ONDANSETRON 4MG/2ML VIAL As Ordered ONE (07:51)
--- NOTE | 2020-07-09 08:26 | RO ---
OPERATIVE NOTE DATE OF OPERATION: 07/09/2020 PREOPERATIVE DIAGNOSIS: Left kidney stones. POSTOPERATIVE DIAGNOSIS: Left kidney stones. PROCEDURE: Left extracorporeal shock wave lithotripsy. SURGEON: Jimbo Watters MD HIGH DENSITY PRESS OPERATOR: None. ANESTHESIA: MAC. OPERATIVE INDICATIONS: This is a 54-year-old male who was found on recent CT scan to have two lower pole left-sided kidney stones measuring up to about 7 mm in size. He was brought to the operating room today for treatment. DESCRIPTION OF PROCEDURE: The patient was brought to the operating room and MAC anesthesia was administered. Prophylactic antibiotics were infused. He was placed in the supine position in preparation for left-sided extracorporeal shock wave lithotripsy. Fluoroscopy was utilized to monitor stone position and fragmentation throughout the procedure. Shock waves were then delivered to the left-sided kidney stones ungated. There were no arrhythmias. The stones did appear to fragment well. After 2500 shocks the procedure was concluded. The patient was awakened from anesthesia and transported to the recovery room in stable condition. ESTIMATED BLOOD LOSS: 0 mL. COMPLICATIONS: None. SPECIMEN: None. PLAN: The patient will follow up in urology clinic in a few weeks with imaging prior to assess for residual stone burden.
[2020-07-09 08:30] VITALS: BP 107/68
[2020-07-09] MEDS ORDERED: LR 1,000 ML IV SCH (08:35)
[2020-07-09] MEDS ORDERED: PERCOCET 5MG/325MG TAB PO PRN (08:35)
[2020-07-09] MEDS ORDERED: ONDANSETRON 4MG/2ML VIAL IV PRN (08:35)
--- NOTE | 2020-07-09 09:39 | REP ---
INDICATION: KIDNEY STONE PREOP PROCEDURE. COMPARISON: None. FINDINGS: KUB shows the intestinal gas pattern to be nonspecific. The organ silhouettes insofar as delineated are unremarkable. There is no evidence of free intraperitoneal air. IMPRESSION: Nonspecific. <Electronically signed by Zheng Mariee > 07/09/20 [id number]
== END 2020-07-09 09:05 | disposition home or self-care (01) ==
LOC: M RAD 06:24 → M SDC 06:24 → M RAD 09:05
PROVIDERS: ATTEND Urology
DX: N20.0 Calculus of kidney (principal); J44.9 Chronic obstructive pulmonary disease, unspecified; F41.9 Anxiety disorder, unspecified; F32.9 Major depressive disorder, single episode, unspecified; F17.218 Nicotine dependence, cigarettes, with other nicotine-induced disorders; E78.5 Hyperlipidemia, unspecified; M35.00 Sjogren syndrome, unspecified; Z79.899 Other long term (current) drug therapy; Z88.8 Allergy status to other drugs, medicaments and biological substances; Z88.5 Allergy status to narcotic agent
CPT/HCPCS: 50590; 74018; J0690; J1100; J2250; J2370; J2405; J2765; J3010

== ENCOUNTER → 2020-08-05 | Outpatient (CLI) | payer MEDICARE, MEDICAID ==
[~2020-08-05] MED LIST changes: -LR 1,000 ML IV ONE; +OXYC1TAB23 PO; -ceFAZolin SOD 2 GM in IV 1 EA IV ONE
--- NOTE | 2020-08-05 14:17 | REP ---
INDICATION: KIDNEY STONE. Comparison 06/05/2019 COMPARISON: None. FINDINGS: KUB shows the intestinal gas pattern to be nonspecific. The organ silhouettes insofar as delineated are unremarkable. There is no evidence of free intraperitoneal air. No abnormal calcifications are seen today. The calcifications seen previously on the left is no longer present. IMPRESSION: Nonspecific. No abnormality identified. <Electronically signed by Zheng Mariee > 08/05/20 [id number]
== END ==
LOC: M ADAMS 13:09
PROVIDERS: ATTEND Nurse Practitioner Women's Health
DX: N20.0 Calculus of kidney (principal)

== ENCOUNTER → 2020-08-06 | Outpatient (REF) | payer MEDICARE, MEDICAID | LOC: M SMT 12:23 | PROVIDERS: ATTEND Nurse Practitioner Women's Health | DX: N20.0 Calculus of kidney (principal) ==

== ENCOUNTER 2020-12-25 12:45 | Outpatient (CLI) | payer MEDICARE, MEDICAID ==
[~2020-12-25] VITALS: Ht 177.8 cm; Wt 77.1 kg
[~2020-12-25 12:45] MED LIST changes: +ALBUTEROL 90 MCG/ACT 8GM HFA INHALER INH PRN; +ALBUTEROL SULFATE 2.5 MG/0.5 ML INH NEB SOLN INH PRN; +EPINEPHrine INJ 1 MG/ML 1ML AMP IM PRN; +NS 1,000 ML IV SCH; +diphenhydrAMINE 50MG/ML VIAL (J1200) IV PRN; +methylPREDNISolone 125MG 2ML VIAL IV PRN
[2020-12-25] MEDS ORDERED: CASIRIVIMAB (REGN10933) 600 MG, IMDEVIMAB (REGN10987) 600 MG in NS 250 ML IV ONE (13:00)
[2020-12-25 13:50] VITALS: BP 119/67
[2020-12-25 14:25] VITALS: BP 111/64
[2020-12-25 15:00] VITALS: BP 111/63
[2020-12-25 15:56] VITALS: BP 121/63
== END 2020-12-25 16:00 | disposition home or self-care (01) ==
LOC: M OPCLI4PR 12:45
PROVIDERS: ATTEND Family Medicine
DX: U07.1 COVID-19 (principal); Z88.5 Allergy status to narcotic agent; Z88.8 Allergy status to other drugs, medicaments and biological substances

== ENCOUNTER → 2021-03-23 | Outpatient (REF) | payer MEDICARE, MEDICAID ==
[~2021-03-23] MED LIST changes: -ALBUTEROL 90 MCG/ACT 8GM HFA INHALER INH PRN; -ALBUTEROL SULFATE 2.5 MG/0.5 ML INH NEB SOLN INH PRN; -EPINEPHrine INJ 1 MG/ML 1ML AMP IM PRN; -NS 1,000 ML IV SCH; -diphenhydrAMINE 50MG/ML VIAL (J1200) IV PRN; -methylPREDNISolone 125MG 2ML VIAL IV PRN
== END ==
LOC: M LABDRWAD 16:51
PROVIDERS: ATTEND Physician Assistant Medical
DX: R56.9 Unspecified convulsions (principal)

== ENCOUNTER → 2021-11-16 | Outpatient (REF) | payer MEDICARE, MEDICAID ==
[2021-11-16 15:40] LABS: APPEARANCE, URINE MANUAL CLEAR (CLEAR); BILIRUBIN, URINE MANUAL NEGATIVE (NEGATIVE); BLOOD URINE MANUAL NEGATIVE (NEGATIVE); COLOR, URINE MANUAL YELLOW (YELLOW); GLUCOSE, URINE (UA) MANUAL NEGATIVE (NEGATIVE); KETONE, URINE MANUAL NEGATIVE (NEGATIVE); LEUKOCYTE ESTERASE, URINE MAN NEGATIVE (NEGATIVE); NITRITE, URINE MANUAL NEGATIVE (NEGATIVE); PROTEIN, URINE MANUAL NEGATIVE (NEGATIVE); SPECIFIC GRAVITY,URINE MANUAL 1.015 (1.002-1.035); UROBILINOGEN, URINE MANUAL NORMAL (NORMAL)
== END ==
LOC: M SMT 15:21
PROVIDERS: ATTEND Nurse Practitioner Women's Health
DX: N39.45 Continuous leakage (principal)

== ENCOUNTER → 2022-03-04 | Outpatient (CLI) | payer MEDICAID, MEDICARE | LOC: M RAD 16:00 | PROVIDERS: ATTEND Family Medicine | DX: Z12.2 Encounter for screening for malignant neoplasm of respiratory organs (principal); F17.210 Nicotine dependence, cigarettes, uncomplicated ==

== ENCOUNTER → 2022-03-18 | Outpatient (REF) | payer MEDICARE, MEDICAID ==
[2022-03-18 19:01] LABS: ALBUMIN 3.9 G/DL (3.2-5.2); ALKALINE PHOSPHATASE 156 U/L (46-116); ALT/SGPT 13 U/L (7.0-40); AST/SGOT 20 U/L (<34); BILIRUBIN,TOTAL 0.6 MG/DL (0.3-1.2); BLOOD UREA NITROGEN 15 MG/DL (9-23); CALCIUM LEVEL 9.4 MG/DL (8.5-10.1); CARBON DIOXIDE LEVEL 28 MMOL/L (20-31); CHLORIDE LEVEL 101 MMOL/L (98-107); CHOLESTEROL LEVEL 156 MG/DL (<200); CHOLESTEROL RISK RATIO 3.32 (<5); CREATININE FOR GFR 1.03 MG/DL (0.70-1.30); GLOMERULAR FILTRATION RATE > 60.0 (>56); GLUCOSE, FASTING 82 MG/DL (60-100); HDL CHOLESTEROL 46.9 MG/DL (>40); LDL CHOLESTEROL 87.7 MG/DL (<100); NON-HDL-C 109 MG/DL; POTASSIUM SERUM 4.6 MMOL/L (3.5-5.1); SODIUM LEVEL 137 MMOL/L (136-145); TOTAL PROTEIN 7.3 G/DL (5.7-8.2); TRIGLYCERIDES LEVEL 107 MG/DL (<150)
== END ==
LOC: M LABDRWAD 12:46
PROVIDERS: ATTEND Family Medicine
DX: E78.5 Hyperlipidemia, unspecified (principal)

== ENCOUNTER → 2022-05-25 | Outpatient (REF) | payer MEDICARE, MEDICAID | LOC: M SFHCADAM 11:02 | PROVIDERS: ATTEND Physician Assistant | DX: Z12.5 Encounter for screening for malignant neoplasm of prostate (principal) ==

== ENCOUNTER → 2022-05-25 | Outpatient (REF) | payer MEDICARE, MEDICAID ==
[~2022-05-25] MED LIST changes: +SENN-186 PO; -SENN-80 PO
== END ==
LOC: M SFHCDERM 14:39
PROVIDERS: ATTEND Dermatology
DX: D23.71 Other benign neoplasm of skin of right lower limb, including hip (principal)

== ENCOUNTER → 2022-06-10 | Outpatient (REF) | payer MEDICARE, MEDICAID ==
[2022-06-10 18:35] LABS: APPEARANCE, URINE CLEAR (CLEAR); BACTERIA, URINE AUTO NEGATIVE (NEGATIVE); BILIRUBIN, URINE AUTO NEGATIVE (NEGATIVE); BLOOD, URINE BLOOD NEGATIVE (NEGATIVE); COLOR, URINE YELLOW (YELLOW); GLUCOSE, URINE (UA) AUTO NEGATIVE (NEGATIVE); KETONE, URINE AUTO NEGATIVE (NEGATIVE); LEUKOCYTE ESTERASE, URINE AUTO NEGATIVE (NEGATIVE); MUCUS, URINE SMALL (NEGATIVE); NITRITE, URINE AUTO NEGATIVE (NEGATIVE); PROTEIN, URINE AUTO NEGATIVE (NEGATIVE); RBC, URINE AUTO 1 /HPF (0-3); SPECIFIC GRAVITY URINE AUTO 1.019 (1.002-1.035); SQUAMOUS EPITHELIAL CELL UR AU 0 /HPF (0-6); UROBILINOGEN, URINE AUTO 0.2 mg/dL (0.0-2.0); WBC, URINE AUTO 1 /HPF (0-3)
== END ==
LOC: M SMT 16:51
PROVIDERS: ATTEND Urology
DX: R32 Unspecified urinary incontinence (principal)

== ENCOUNTER → 2023-05-10 | Outpatient (CLI) | payer MEDICAID, OTHER | LOC: M RAD 13:26 | PROVIDERS: ATTEND Family Medicine | DX: Z12.2 Encounter for screening for malignant neoplasm of respiratory organs (principal); F17.210 Nicotine dependence, cigarettes, uncomplicated ==

== ENCOUNTER → 2023-06-08 | Outpatient (CLI) | payer OTHER | LOC: M RAD 08:48 | PROVIDERS: ATTEND Family Medicine | DX: K76.89 Other specified diseases of liver (principal) ==

== ENCOUNTER → 2023-06-27 | Outpatient (REF) | payer OTHER, MEDICAID ==
[2023-06-27 18:06] LABS: APPEARANCE, URINE CLEAR (CLEAR); BACTERIA, URINE AUTO NEGATIVE (NEGATIVE); BILIRUBIN, URINE AUTO NEGATIVE (NEGATIVE); BLOOD, URINE BLOOD NEGATIVE (NEGATIVE); COLOR, URINE YELLOW (YELLOW); GLUCOSE, URINE (UA) AUTO NEGATIVE (NEGATIVE); KETONE, URINE AUTO NEGATIVE (NEGATIVE); LEUKOCYTE ESTERASE, URINE AUTO NEGATIVE (NEGATIVE); NITRITE, URINE AUTO NEGATIVE (NEGATIVE); PROTEIN, URINE AUTO NEGATIVE (NEGATIVE); RBC, URINE AUTO 0 /HPF (0-3); SPECIFIC GRAVITY URINE AUTO 1.005 (1.002-1.035); SQUAMOUS EPITHELIAL CELL UR AU 0 /HPF (0-6); UROBILINOGEN, URINE AUTO 0.2 mg/dL (0.0-2.0); WBC, URINE AUTO 0 /HPF (0-3)
== END ==
LOC: M SMT 17:18
PROVIDERS: ATTEND Physician Assistant
DX: N39.45 Continuous leakage (principal)

== ENCOUNTER → 2023-06-27 | Outpatient (REF) | payer OTHER, MEDICAID ==
[2023-06-27 18:22] LABS: ALBUMIN 3.8 G/DL (3.2-5.2); ALKALINE PHOSPHATASE 149 U/L (46-116); ALT/SGPT 16 U/L (7.0-40); AST/SGOT 15 U/L (<34); BILIRUBIN,TOTAL 0.6 MG/DL (0.3-1.2); BLOOD UREA NITROGEN 11 MG/DL (9-23); CALCIUM LEVEL 9.2 MG/DL (8.5-10.1); CARBON DIOXIDE LEVEL 26 MMOL/L (20-31); CHLORIDE LEVEL 103 MMOL/L (98-107); CREATININE FOR GFR 1.02 MG/DL (0.70-1.30); GLOMERULAR FILTRATION RATE > 60.0 (>56); GLUCOSE, FASTING 80 MG/DL (60-100); POTASSIUM SERUM 4.2 MMOL/L (3.5-5.1); SODIUM LEVEL 137 MMOL/L (136-145)
[2023-06-27 18:24] LABS: BASO % 0.2 % (0.0-1.0); EOS # 0.2 10^3/uL (0.0-0.5); EOS % 1.2 % (0.0-3.0); HEMATOCRIT 47.4 % (42.0-52.0); HEMOGLOBIN 15.6 g/dl (13.5-17.5); LYMPH # 2.4 10^3/uL (1.5-5.0); LYMPH % 18.1 % (24.0-44.0); MEAN CORPUSCULAR HEMOGLOBIN 30.1 pg (27.0-33.0); MEAN CORPUSCULAR HGB CONC 32.9 g/dl (32.0-36.5); MEAN CORPUSCULAR VOLUME 91.5 fl (80.0-96.0); MONO # 0.6 10^3/uL (0.0-0.8); MONO % 4.8 % (2.0-8.0); NEUTROPHILS # 9.9 10^3/uL (1.5-8.5); NEUTROPHILS % 75.3 % (36.0-66.0); PLATELET COUNT, AUTOMATED 205 10^3/uL (150-450); RED BLOOD COUNT 5.18 10^6/uL (4.30-6.10); WHITE BLOOD COUNT 13.1 10^3/uL (4.0-10.0)
== END ==
LOC: M SFHCLERA 10:56
PROVIDERS: ATTEND Family Medicine
DX: K76.89 Other specified diseases of liver (principal); D72.829 Elevated white blood cell count, unspecified

== ENCOUNTER → 2023-09-11 | Outpatient (CLI) | payer OTHER, MEDICAID ==
[~2023-09-11] MED LIST changes: +FLUO-365 PO; -FLUO20CA22 PO; +ISOVUE-370 76% 100ML VIAL As Ordered ONE
== END ==
LOC: M RAD 09:30
PROVIDERS: ATTEND Family Medicine
DX: K76.89 Other specified diseases of liver (principal); M51.37 Other intervertebral disc degeneration, lumbosacral region
CPT/HCPCS: 74170; Q9967

== ENCOUNTER → 2023-10-30 | Outpatient (CLI) | payer OTHER, MEDICAID ==
[~2023-10-30] MED LIST changes: -ISOVUE-370 76% 100ML VIAL As Ordered ONE; +ISOVUE-370 76% 100ML VIAL ONE
== END ==
LOC: M PLAIMG 11:10
PROVIDERS: ATTEND Psychiatry & Neurology Neurology
DX: R41.3 Other amnesia (principal); G93.89 Other specified disorders of brain; Z98.890 Other specified postprocedural states
CPT/HCPCS: 70470; Q9967

== ENCOUNTER → 2024-05-17 | Outpatient (CLI) | payer MEDICARE, MEDICAID ==
[~2024-05-17] MED LIST changes: +ISOVUE-370 76% 100ML VIAL As Ordered ONE; -ISOVUE-370 76% 100ML VIAL ONE
== END ==
LOC: M RAD 08:59
PROVIDERS: ATTEND Nurse Practitioner Family
DX: K76.89 Other specified diseases of liver (principal)
CPT/HCPCS: 74178; Q9967

== ENCOUNTER → 2024-06-06 | Outpatient (REF) | payer OTHER ==
[~2024-06-06] MED LIST changes: -ISOVUE-370 76% 100ML VIAL As Ordered ONE
[2024-06-06 15:02] LABS: BASO % 0.3 % (0.0-1.0); EOS # 0.4 10^3/uL (0.0-0.5); EOS % 3.5 % (0.0-3.0); HEMATOCRIT 49.4 % (42.0-52.0); HEMOGLOBIN 16.1 g/dl (13.5-17.5); LYMPH # 2.4 10^3/uL (1.5-5.0); LYMPH % 21.7 % (24.0-44.0); MEAN CORPUSCULAR HGB CONC 32.6 g/dl (32.0-36.5); MEAN CORPUSCULAR VOLUME 92.2 fl (80.0-96.0); MONO # 0.6 10^3/uL (0.0-0.8); MONO % 5.2 % (2.0-8.0); NEUTROPHILS # 7.7 10^3/uL (1.5-8.5); NEUTROPHILS % 68.9 % (36.0-66.0); PLATELET COUNT, AUTOMATED 216 10^3/uL (150-450); RED BLOOD COUNT 5.36 10^6/uL (4.30-6.10); WHITE BLOOD COUNT 11.1 10^3/uL (4.0-10.0)
[2024-06-06 15:33] LABS: PSA SCREENING 2.07 NG/ML (< 4.00)
[2024-06-06 15:45] LABS: ALBUMIN 3.6 G/DL (3.2-5.2); BILIRUBIN,TOTAL 0.4 MG/DL (0.3-1.2); CALCIUM LEVEL 9.6 MG/DL (8.5-10.1); CHOLESTEROL RISK RATIO 3.75 (<5); CREATININE FOR GFR 1.03 MG/DL (0.70-1.30); GLOMERULAR FILTRATION RATE 83.7 (>56); HDL CHOLESTEROL 44.8 MG/DL (>40); LDL CHOLESTEROL 95.4 MG/DL (<100); NON-HDL-C 123.2 MG/DL; POTASSIUM SERUM 4.5 MMOL/L (3.5-5.1); TOTAL PROTEIN 7.1 G/DL (5.7-8.2)
[2024-06-06 18:01] LABS: HEMOGLOBIN A1c 5.3 % (4.0-6.0)
== END ==
LOC: M SFHCADAM 10:25
PROVIDERS: ATTEND Family Medicine
DX: Z00.00 Encounter for general adult medical examination without abnormal findings (principal); E78.5 Hyperlipidemia, unspecified; Z12.5 Encounter for screening for malignant neoplasm of prostate

== ENCOUNTER → 2024-07-01 | Outpatient (CLI) | payer OTHER ==
[~2024-07-01] MED LIST changes: -FLOM0.4C39 PO; +TAMS-18 PO; +TOPI-256 PO; -TOPI25TA10 PO
== END ==
LOC: M RAD 14:54
PROVIDERS: ATTEND Family Medicine
DX: Z12.2 Encounter for screening for malignant neoplasm of respiratory organs (principal); F17.210 Nicotine dependence, cigarettes, uncomplicated; J43.2 Centrilobular emphysema

== ENCOUNTER → 2025-01-02 | Outpatient (CLI) | payer MEDICARE, MEDICAID ==
[~2025-01-02] MED LIST changes: -PRAV10TA3 PO; +PRAV10TA43 PO
== END ==
LOC: M PLAIMG 13:56
PROVIDERS: ATTEND Psychiatry & Neurology Neurology
DX: R41.82 Altered mental status, unspecified (principal)